=== PATIENT | female | born 1985 | race Caucasian/White ===

== ENCOUNTER → 2021-05-03 | Outpatient (CLI) | payer OTHER ==
--- NOTE | 2021-05-04 13:19 | RAD ---
Renal ultrasound 05/04/2021 INDICATION: Proteinuria COMPARISON STUDY: None Discussion: Ultrasound evaluation of the kidneys was performed. Static images are submitted to PACS. The right kidney measures 11.2 x 5.8 x 4.5 cm. There is a 1.8 cm cyst within the central, right kidne y. The bladder is unremarkable in appearance. Bilateral ureteral jets noted. Left kidney measures 12. 0 x 4.7 x 4.7 cm. Neither kidney demonstrates evidence of hydronephrosis, or nephrolithiasis. No foca l renal lesion is identified on the left. IMPRESSION: 1. 1.8 cm cyst within the central right kidney. 2. Otherwise unremarkable renal ultrasound Electronically signed by: Hayden Gu MD (05/04/2021 1:17 PM) [id number]
== END ==
LOC: US 15:22
PROVIDERS: ATTEND Nurse Practitioner Family
DX: N28.1 Cyst of kidney, acquired (principal); R80.9 Proteinuria, unspecified
CPT/HCPCS: 76770